=== PATIENT | female | born 1985 | race Caucasian/White ===

== ENCOUNTER 2021-01-27 08:16 | Emergency (ER) | payer OTHER, SELFPAY ==
[2021-01-27 09:24] VITALS: BP 106/73; PULSE 73; RESP 18; TEMP 36.6; O2SAT 98; BMI 26.6
--- NOTE | 2021-01-27 10:23 | ED.NECK ---
HPI - Neck Pain/Injury General Chief Complaint: Neck Pain/Injury Stated Complaint: neck pain for 3wks, worsening last 48 hrs Time Seen by Provider: 01/27/21 10:00 Mode of arrival: Ambulatory Limitations: no limitations History of Present Illness HPI Narrative: 35-year-old woman with a history of ulcerative colitis currently has a Mirena in place presents with 3 weeks of intermittent left-sided neck pain. She initially thought it was after she ?slept wrong? period initially was mild and every other day over the last week it has been daily and on last 24 hours has gotten to the point that she is having trouble with moving at all secondary to pain. She occasionally has radicular pain down her arm and into her shoulder but has not noticed any actual weakness in the arm or hand. She denies any fevers, cough, chills. She has no history of IV drug use. She avoids nonsteroidals due to her ulcerative colitis. She finds that ice and heat, Tylenol and a neck pillow are no longer adequate in controlling her pain. Related Data Previous Rx's Medication Instructions Recorded dexamethasone 4 mg tablet 8 mg PO DAILY #4 tab 01/27/21 (Decadron) diazepam 5 mg tablet 5 mg PO BID PRN #10 tab 01/27/21 oxycodone-acetaminophen 5 mg-325 1 tab PO Q6H PRN #14 tab 01/27/21 mg tablet Allergies Allergy/AdvReac Type Severity Reaction Status Date / Time NSAIDS (Non-Steroidal Allergy Verified 01/27/21 09:28 Anti-Inflamma Review of Systems Review of Systems Narrative: Remainder of complete review of systems is otherwise unremarkable except for that included in the HPI. Patient History Social History Smoking Status: Never smoker Smoking Status: Never smoker alcohol intake frequency: 0-2 drinks per day Substance Use Type: does not use Exam Narrative Exam Narrative: General: Healthy appearing, in mild pain. Able to give a complete and coherent history. Well-nourished well-developed HEENT: Moist mucous membranes, normal sclera with reactive pupils, Neck: No JVD, significant pair of us spinous muscle spasm worse on the left than the right. Trapezius muscle spasm bilaterally. No midline tenderness at the cervical spine Respiratory: Lungs are clear to auscultation, no wheezing no rales no rhonchi. Full and symmetrical air movement Cardiac: Regular rate and rhythm no murmurs no bruits Skin: Warm and dry, no rashes Neurologic: Grossly neurologically intact with no obvious asymmetries or abnormalities, full sensation strength and reflexes to the left arm Extremities: No trauma, well perfused Psych: Cooperative, appropriate insight and affect Initial Vital Signs Initial Vital Signs: Vital Signs Temperature 97.9 F 01/27/21 09:24 Pulse Rate 73 01/27/21 09:24 Respiratory Rate 18 01/27/21 09:24 Blood Pressure 106/73 01/27/21 09:24 Pulse Oximetry 98 01/27/21 09:24 Course Orders Ordered: Discontinued Medications Acetaminophen (Acetaminophen 325 Mg Tablet) 975 mg PO NOW ONE Stop: 01/27/21 10:15 Dexamethasone (Dexamethasone 4 Mg Tablet) 8 mg PO NOW ONE Stop: 01/27/21 10:15 Vital Signs Vital signs: Vital Signs - 8 hr 01/27/21 09:24 Temperature 97.9 F Pulse Rate 73 Respiratory Rate 18 Blood Pressure 106/73 Pulse Oximetry 98 MDM - Neck Pain/Injury MDM Narrative Medical decision making narrative: 35-year-old woman with 3 weeks of increasing neck pain now with radicular findings. Will place her on 3 days of Decadron 8 mg a day. Have her continue Tylenol and Valium for muscle spasm and Percocet for severe pain with instructions to not mix the Valium in the Percocet. Prescription for physical therapy is given. There is no red flags to suggest infection, abscess or acute neurologic findings. She is safe for home discharge Discharge Plan Departure Patient Disposition: Home Clinical Impression: Cervical radiculopathy Instructions: DI for Neck Pain Activity Restrictions/Additional Instructions: I am sorry you are hurting so much Use Tylenol for moderate pain. Use 1-2 Percocet (with some food) every 6 hours for significant pain. For muscle spasm you can use 5 mg of diazepam/Valium. Tylenol and Valium are a good combination. Percocet and Valium can cause you to stop breathing if used at the same time. Please make sure they are at least 3-4 hours between dosing of the Percocet and Valium Continuing to use the neck brace will likely be helpful. Alternating with ice and heat can be helpful I have also given you a written prescription for physical therapy. You can choose whichever therapist is most convenient for you. Prescriptions: New dexamethasone [Decadron] 4 mg tablet 8 mg PO DAILY Qty: 4 RF: 0 diazepam 5 mg tablet 5 mg PO BID PRN (Reason: muscle spasm) Qty: 10 RF: 0 oxycodone-acetaminophen 5-325 mg tablet 1 tab PO Q6H PRN (Reason: pain) Qty: 14 RF: 0
[2021-01-27] MEDS: ACETAMINOPHEN 325 MG TABLET 975 MG PO (10:30)
[2021-01-27] MEDS: dexAMETHasone 4 MG TABLET 8 MG PO (10:31)
[2021-01-27 11:00] VITALS: BP 100/59; PULSE 89; O2SAT 99
== END 2021-01-27 11:01 | disposition home or self-care (01) ==
PROVIDERS: Emergency Provider Emergency Medicine
DX: M54.12 Radiculopathy, cervical region (principal)
CPT/HCPCS: 99283